=== PATIENT | male | born 1960 | race Native Hawaiian/Other Pacific Islander ===

== ENCOUNTER 2017-03-18 11:14 | Outpatient (CLI) | payer OTHER | END 2017-03-18 19:06 | disposition home or self-care (01) | LOC: RAD 11:14 | DX: M54.14 Radiculopathy, thoracic region (principal) ==

== ENCOUNTER 2017-04-15 18:32 | Outpatient (CLI) | payer OTHER | END 2017-04-15 18:36 | disposition short-term general hospital (02) | LOC: AMB 18:32 | DX: M25.511 Pain in right shoulder (principal); M25.562 Pain in left knee; M25.561 Pain in right knee; V49.88XA Car occupant (driver) (passenger) injured in other specified transport accidents, initial encounter; Y92.488 Other paved roadways as the place of occurrence of the external cause | CPT/HCPCS: A0425; A0427 ==

== ENCOUNTER 2017-04-15 18:35 | Emergency (ER) | payer OTHER ==
[~2017-04-15] VITALS: Ht 180.3 cm; Wt 69.4 kg
== END 2017-04-15 21:50 | disposition home or self-care (01) ==
LOC: ED 18:35
DX: S00.93XA Contusion of unspecified part of head, initial encounter (principal); S20.212A Contusion of left front wall of thorax, initial encounter; S20.211A Contusion of right front wall of thorax, initial encounter; S20.222A Contusion of left back wall of thorax, initial encounter; S20.221A Contusion of right back wall of thorax, initial encounter; S40.011A Contusion of right shoulder, initial encounter; S13.4XXA Sprain of ligaments of cervical spine, initial encounter; M48.32 Traumatic spondylopathy, cervical region; S42.101A Fracture of unspecified part of scapula, right shoulder, initial encounter for closed fracture; V43.62XA Car passenger injured in collision with other type car in traffic accident, initial encounter
CPT/HCPCS: 99283

== ENCOUNTER 2023-08-07 14:54 | Outpatient (CLI) | payer OTHER | END 2023-08-07 19:07 | disposition home or self-care (01) | LOC: RAD 14:54 | PROVIDERS: ATTEND Internal Medicine | DX: J44.9 Chronic obstructive pulmonary disease, unspecified (principal); R05.9 Cough, unspecified ==